=== PATIENT | male | born 1985 | race Two or more races ===

== ENCOUNTER → 2018-11-14 | Outpatient (CLI) | payer OTHER | LOC: M OUTALCOH 12:37 | PROVIDERS: ATTEND Psychiatry & Neurology Psychiatry | DX: Z03.89 Encounter for observation for other suspected diseases and conditions ruled out (principal) ==

== ENCOUNTER 2018-11-28 10:48 | Outpatient (RCR) | payer OTHER | END 2018-12-11 | LOC: M OUTALCOH 10:48 | PROVIDERS: ATTEND Psychiatry & Neurology Psychiatry | DX: Z03.89 Encounter for observation for other suspected diseases and conditions ruled out (principal) ==